=== PATIENT | female | born 1985 | race African-American/Black ===

== ENCOUNTER 2021-02-05 19:24 | Emergency (ER) | payer SELFPAY ==
[2021-02-05 19:28] VITALS: BP 122/85; PULSE 69; TEMP 97; BMI 35.7
[2021-02-05] MEDS ORDERED: KETOROLAC TROMETHAMINE 30 MG/1 ML VIAL IM ONE (19:45)
== END 2021-02-05 21:27 | disposition home or self-care (01) ==
LOC: JERFT 19:24
PROC: 3E0233Z Introduction of Anti-inflammatory into Muscle, Percutaneous Approach (ICD-10-PCS; principal; 2021-02-05)
DX: T24.111A Burn of first degree of right thigh, initial encounter (principal); T24.112A Burn of first degree of left thigh, initial encounter; X11.8XXA Contact with other hot tap-water, initial encounter; Y27.2XXA Contact with hot fluids, undetermined intent, initial encounter
CPT/HCPCS: 99284-25